=== PATIENT | male | born 1940 | race Caucasian/White ===

== ENCOUNTER 2019-02-05 16:14 | Observation (INO) ==
[2019-02-05] MEDS ORDERED: Ondansetron 4 MG/2 ML VIAL IVP ONE (16:50)
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
[2019-02-05 16:56] LABS: Basophils % 0.3 %; Eosinophils # 0.1 K/mcL (0.0-0.6); Eosinophils % 1.5 %; Hematocrit 51.4 % (37.5-50.1); Hemoglobin 17.2 g/dL (12.9-16.9); Immature Granulocytes % 0.4 % (0-4); Lymphocytes # 1.4 K/mcL (0.6-4.6); Lymphocytes % 21.2 %; Mean Corpuscular HGB Conc 33.5 g/dL (31.6-35.5); Mean Corpuscular Hemoglobin 33.9 pg (28.0-33.3); Mean Corpuscular Volume 101.4 fL (83.0-100.0); Mean Platelet Volume 9.5 fL (9.4-12.4); Monocytes # 0.5 K/mcL (0.0-1.3); Monocytes % 6.7 %; Neutrophils # 4.7 K/mcL (1.6-8.9); Platelet Count 170 K/mcL (140-400); Red Blood Count 5.07 M/mcL (4.19-5.50); Red Cell Distribution Width 11.8 % (11.5-14.5); Segmented Neutrophils % 69.9 %; White Blood Count 6.7 K/mcL (4.3-11.1)
[2019-02-05 17:08] LABS: INR 1.1; Prothrombin Time 12.2 Seconds (9.4-12.1)
[2019-02-05 17:11] LABS: Activated Partial Thrombo Time 31.9 Seconds (26.0-36.0)
[2019-02-05 17:17] LABS: BUN/Creatinine Ratio 19 (6-26); Blood Urea Nitrogen 20 mg/dL (8-23); Calcium 9.6 mg/dL (8.6-10.3); Carbon Dioxide 30 mEq/L (23-29); Chloride 102 mEq/L (98-107); Glucose 201 mg/dL (70-105); Osmolality,Calculated 298 (280-300); Potassium 4.2 mEq/L (3.5-5.1); Sodium 140 mEq/L (136-145); eGFR For African Americans > 60 (> 60); eGFR For Non-African Americans > 60 (> 60)
[2019-02-05 17:18] LABS: Troponin I 0.03 ng/mL (< 0.04)
[2019-02-05] MEDS ORDERED: Nitroglycerin 0.4 MG TAB.SUBL SL PRN (19:58)
[2019-02-05] MEDS ORDERED: Ondansetron 4 MG/2 ML VIAL IVP PRN (19:58)
--- NOTE | 2019-02-05 20:02 | Internal Med History&Physical ---
Date of Encounter: 02/05/19 Time of Encounter: 19:51 Internal Medicine - H&P: HPI Chief complaint: Chest pain History of present illness: Mr. Pool is a 78 year old male with a past medical history of coronary artery disease with reported for four-vessel disease status post CABG, valvular disease with history of moderate aortic stenosis, hyperlipidemia, type 2 diabe karen and HARRY who presented to the ED with complaints of chest discomfort which occurred earlier this morning while patient was at the [facility]. While in the waiting room patient suddenly became diaphoretic, nauseous, short of breath associated with heaviness in the chest that was nonradiating, nonpleuritic with no aggravating or alleviating factors. Intensity of discomfort was 10 out of 10. Patient felt sick to her stomach and got up to go to the bathroom with the hope that if he vomited it may relieve the discomfort. He however was unable to vomit. Symptoms do not improve and the patient additionally felt weak. Family recommended coming in for evaluation. Patient reports current presentation slightly different from previous [place] in [place] 2 years ago. Pain was about a 6 out of 10 on arrival. Did not take any sublingual nitroglycerin. Received loading dose of aspirin in route. Patient denies any recent illness but does states that he's been feeling off for the past month in terms of sleeping more often and decreased energy. Patient previously had workup for obstructive sleep apnea with recommendation for CPAP at night. Patient however has not been using it. On arrival vitals were stable. Laboratory and imaging workup were unremarkable. Initial troponin negative. EKG showing sinus rhythm with non-specific ST and T wave changes not suggestive of ischemia. We will admit for chest pain workup in the setting of significant coronary artery disease history. Past Med Surg Social Fam HX - Past Medical History Medical history: diabetes, myocardial infarction, other Additional medical history: BPH Psychiatric history: anxiety, depression - Past Surgical History Surgical History: coronary bypass (CABG) Additional surgical history: TURP - Social History Smoking Status: Never smoker Alcohol use: none Drug use: none - Family History Brother Hx Family Cardiac Disorders: Yes ([place]) Father Living Status: Cause of : [place] Hx Family Cardiac Disorders: Yes ([place]) Internal Medicine - H&P: Meds Aspirin [Lo-Dose Aspirin EC] 81 mg PO DAILY 02/05/19 [History] Clopidogrel [Plavix] 75 mg PO DAILY 02/05/19 [History] Metoprolol [Lopressor] 25 mg PO HS 02/05/19 [History] Rosuvastatin [Crestor] 10 mg PO HS 02/05/19 [History] Isosorbide MONOnitrate (24 HR) [Imdur] 30 mg PO DAILY #30 tab.er.24h 02/06/19 [Rx] Allergy/AdvReac Type Severity Reaction Status Date / Time No Known Allergies Allergy Verified 02/05/19 17:00 All Systems PM: A 10-system review of systems was performed and is negative for pertinent findings except as documented above in the HPI. - Constitutional Constitutional: no chills, no fever(s), no night sweats - EENT Eyes: no change in vision, no discharge, no pain, no photophobia Ears: no ear discharge, no ear pain, no tinnitus Nose, mouth and throat: no dysphagia, no nasal discharge, no neck pain, no sore throat - Cardiovascular Cardiovascular ROS IM: no chest pain, no diaphoresis, no dyspnea, no lightheadedness, no palpitations, no syncope - Respiratory Respiratory: no cough, no dyspnea, no wheezing, no excessive phlegm production - Gastrointestinal Gastrointestinal: no abdominal pain, no diarrhea, no hematemesis, no hematochezia, no melena, no nausea, no vomiting - Musculoskeletal Musculoskeletal ROS IM: no numbness, no tingling - Integumentary Integumentary IM: no rash, no unusual bruising - Neurological Neurological ROS: no confusion, no convulsions, no focal weakness, no numbness, no tingling, no tremor(s) - Hematologic/Lymphatic Hematologic/Lymphatic: no easy bruising - Constitutional Vitals: Temp Pulse Resp BP Pulse Ox 97.6 F 75 20 109/68 96 02/05/19 16:29 02/05/19 18:05 02/05/19 18:05 02/05/19 18:05 02/05/19 18:05 Exam: General: Alert and oriented Skin:Normal color, no rash, no lesions. HEENT:EOM, pupils equal, round and reactive. Cardiovascular:Normal S1 & S2, no rubs, murmurs or gallops. No JVD. Pulse regular. Lungs:Normal breath sounds, no wheezes or crackles. Abdomen:Soft, non-tender, no rigidity. Extremities:No deformity, no edema or tenderness, no joint swelling or clubbing. Neurological:Normal cognition and motor skills. Pulses:Carotid and radial pulses normal +2. Rest of the physical exam is non contributory Internal Med - H&P Results - Labs CBC & Chem 7: 02/06/19 00:53 02/06/19 00:53 Labs: Short CBC 02/05/19 Range/Units 16:25 WBC 6.7 (4.3-11.1) K/mcL Hgb 17.2 H (12.9-16.9) g/dL Hct 51.4 H (37.5-50.1) % Plt Count 170 (140-400) K/mcL Neutrophils # 4.7 (1.6-8.9) K/mcL BMP 02/05/19 16:25 Sodium 140 Potassium 4.2 Chloride 102 Carbon Dioxide 30 H BUN 20 Creatinine 1.05 Glucose 201 H Calcium 9.6 Cardiac Enzymes 02/05/19 Range/Units 16:25 Troponin I 0.03 (< 0.04) ng/mL - Impressions ITS Impressions Chest X-Ray 02/05/19 16:45 IMPRESSION: No acute cardiopulmonary process. D/ / Arun Palma MD / Arun Palam MD Interpreting Provider: Arun Palma MD - Assessment and Plan (1) Chest pain Status: Acute Assessment and plan: Patient is a 78-year-old male with a past medical history of CAD with 4 vessel disease status post CABG and valvular heart disease who presented with significant chest discomfort associated with diaphoresis and nausea. Presentation slightly different to previous [place]. Initial troponin negative. EKG shows sinus rhythm no significant ST or T-wave changes concerning for ischemia. Laboratory and imaging workup otherwise unremarkable. Patient currently on low-dose aspirin, rosuvastatin, beta julio and Plavix and reports compliance with medications. Currently chest down to 2 out of 10. Received loading dose of aspirin in route Cannot rule out ACS at this time. Most recent echo on record from September 2017 showing EF of 45-50% with moderately calcified aortic valve leaflets and mild aortic stenosis. -Telemetry -Trend troponin -Echocardiogram -Sublingual nitroglycerin as needed -Continue beta julio, aspirin, statin and Plavix -Stress testing if troponins remain negative -We will consider cardiology consult if any concerning changes manifest overnight. Qualifiers: Chest pain type: unspecified Qualified Code(s): R07.9 - Chest pain, unspecified (2) HARRY (obstructive sleep apnea) Status: Acute Assessment and plan: History of HARRY with recommendation for CPAP at night. Patient however has not been compliant. -Recommended CPAP tonight (3) Hypertension Status: Acute Assessment and plan: Blood pressure stable. -Resume home antihypertensives Qualifiers: Hypertension type: essential hypertension Qualified Code(s): I10 - Essential (primary) hypertension (4) Hyperlipidemia Status: Acute Assessment and plan: Continue home dose rosuvastatin Qualifiers: Hyperlipidemia type: unspecified Qualified Code(s): E78.5 - Hyperlipidemia, unspecified (5) DVT prophylaxis Status: Acute Assessment and plan: Subcutaneous heparin - Time Spent With Patient Total time spent is greater than 50% in coordination of care (as documented) at patient's floor/unit and/or counseling patient:
[2019-02-05] MEDS: *HR* Heparin 5,000 UNIT/ML VIAL SQ SCH (21:52)
[2019-02-06 02:05] LABS: Basophils % 0.3 %; Eosinophils # 0.1 K/mcL (0.0-0.6); Eosinophils % 1.4 %; Hematocrit 45.5 % (37.5-50.1); Immature Granulocytes % 0.3 % (0-4); Lymphocytes # 1.6 K/mcL (0.6-4.6); Lymphocytes % 24.5 %; Mean Corpuscular HGB Conc 33.4 g/dL (31.6-35.5); Mean Corpuscular Hemoglobin 33.4 pg (28.0-33.3); Mean Platelet Volume 10.1 fL (9.4-12.4); Monocytes # 0.5 K/mcL (0.0-1.3); Monocytes % 7.3 %; Neutrophils # 4.3 K/mcL (1.6-8.9); Platelet Count 162 K/mcL (140-400); Red Blood Count 4.55 M/mcL (4.19-5.50); Red Cell Distribution Width 11.6 % (11.5-14.5); Segmented Neutrophils % 66.2 %; White Blood Count 6.5 K/mcL (4.3-11.1)
[2019-02-06 02:06] LABS: Hemoglobin 15.2 g/dL (12.9-16.9)
[2019-02-06 02:12] LABS: INR 1.1; Prothrombin Time 12.7 Seconds (9.4-12.1)
[2019-02-06 02:15] LABS: Activated Partial Thrombo Time 31.4 Seconds (26.0-36.0)
[2019-02-06 02:56] LABS: Alanine Aminotransferase 233 Units/L (7-52); Albumin 3.8 g/dL (3.5-5.7); Albumin/Globulin Ratio 1.8 (1.1-2.2); Alkaline Phosphatase 88 Units/L (34-104); Aspartate Amino Transferase 405 Units/L (13-39); BUN/Creatinine Ratio 22 (6-26); Bilirubin,Total 1.3 mg/dL (0.3-1.0); Blood Urea Nitrogen 23 mg/dL (8-23); Carbon Dioxide 23 mEq/L (23-29); Chloride 102 mEq/L (98-107); Chol/HDL Ratio 3.9 (0-4.9); Cholesterol 109 mg/dL (< 200); Globulin 2.1 g/dL (2.4-3.5); Glucose 276 mg/dL (70-105); HDL Cholesterol 28 mg/dL (40-59); LDL Cholesterol,Calculated 57 mg/dL (0-99); Osmolality,Calculated 300 (280-300); Potassium 3.8 mEq/L (3.5-5.1); Sodium 138 mEq/L (136-145); Total Protein 5.9 g/dL (6.4-8.9); Triglycerides 118 mg/dL (< 150); eGFR For African Americans > 60 (> 60); eGFR For Non-African Americans > 60 (> 60)
[2019-02-06] MEDS: *HR* Heparin 5,000 UNIT/ML VIAL SQ SCH ×2 (05:44→14:49)
[2019-02-06] MEDS ORDERED: Regadenoson 0.4 MG/5 ML SYRINGE IVP ONE (06:18)
[2019-02-06] MEDS ORDERED: Aspirin Enteric Coated 81 MG Tablet PO SCH (09:00)
[2019-02-06 09:09] LABS: Estimated Average Glucose 148 mg/dl
[2019-02-06 11:43] VITALS: BP 106/67
--- NOTE | 2019-02-06 12:36 | Electrocardiograph Report ---
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
[2019-02-06] MEDS ORDERED: Isosorbide MONOnitrate (24 HR) 30 MG TAB.ER.24H PO SCH (13:34)
--- NOTE | 2019-02-06 14:51 | Discharge Summary ---
- NOTES TO OUTPATIENT PROVIDER Notes to Outpatient Provider: f/u with PCP in one week. f/u with Cardiology in 1-2 weeks. Medication changes: Start taking Imdur 30 mg PO Daily. Date of Encounter: 02/06/19 Time of Encounter: 14:49 - Discharge Diagnosis (1) Chest pain Priority: Primary Status: Acute Qualifiers: Chest pain type: unspecified Qualified Code(s): R07.9 - Chest pain, unspecified (2) HARRY (obstructive sleep apnea) Priority: Secondary Status: Acute (3) Hypertension Priority: Secondary Status: Acute Qualifiers: Hypertension type: essential hypertension Qualified Code(s): I10 - Essential (primary) hypertension (4) Hyperlipidemia Priority: Secondary Status: Acute Qualifiers: Hyperlipidemia type: unspecified Qualified Code(s): E78.5 - Hyperlipidemia, unspecified (5) DVT prophylaxis Priority: Secondary Status: Acute Hospital course: Mr. Pool is a 78 year old male with a past medical history of coronary artery disease with reported for four-vessel disease status post CABG, valvular disease with history of moderate aortic stenosis, hyperlipidemia, type 2 diabetes and HARRY who presented to the ED with complaints of chest discomfort which occurred earlier in the day while patient was at the [facility]. While in the waiting room patient suddenly became diaphoretic, nauseous, short of breath associated with heaviness in the chest that was non radiating, non pleuritic with no aggravating or alleviating factors. Intensity of discomfort was 10 out of 10. He was admitted in the hospital and placed him on telemetry monitor. His serial troponin were negative. His EKG did not show any acute ischemic changes. He denied any more CP. Since he is high risk for ACS, he did go for nuclear stress test which came back as negative. Due to his extensive cardiac history he was evaluated by testing specialist who recommend to start him on imdur and recommend to f/u with them as an out pt. His 2-D Echo showed preserved LVEF, septal/almost abnormalities noticed. Reviewed his Echo with testing specialist he does have moderate active stenosis, recommend to f/u with Card as an out pt. - Time Spent with Patient Total time spent providing and/or coordinating discharge services: - Discharge Medications Prescriptions: New Isosorbide MONOnitrate (24 HR) [Imdur] 30 mg PO DAILY #30 tab.er.24h Continued Clopidogrel [Plavix] 75 mg PO DAILY Rosuvastatin [Crestor] 10 mg PO HS Aspirin [Lo-Dose Aspirin EC] 81 mg PO DAILY Metoprolol [Lopressor] 25 mg PO HS Home Medications: Aspirin [Lo-Dose Aspirin EC] 81 mg PO DAILY 02/05/19 [History] Clopidogrel [Plavix] 75 mg PO DAILY 02/05/19 [History] Metoprolol [Lopressor] 25 mg PO HS 02/05/19 [History] Rosuvastatin [Crestor] 10 mg PO HS 02/05/19 [History] Isosorbide MONOnitrate (24 HR) [Imdur] 30 mg PO DAILY #30 tab.er.24h 02/06/19 [Rx] Allergies/Adverse Reactions: Allergy/AdvReac Type Severity Reaction Status Date / Time No Known Allergies Allergy Verified 02/05/19 17:00 Date of admission: 02/05/19 18:32 Primary care physician: Nicolette Ornelas Consults: 02/06/19 11:25 Consult to Cardiology [CONS] Routine Comment: Consulting Provider: [facility] [place] Reason for Consult: Chest pain.. Extensive cardiac history Time Notified: 11:25 Call Completed: Yes - Constitutional Vitals: Temp Pulse Resp BP Pulse Ox 97.5 F L 63 17 106/67 94 02/06/19 11:41 02/06/19 11:41 02/06/19 11:41 02/06/19 11:41 02/06/19 03:32 General appearance: Present: cooperative, A&O X 3, no acute distress, answers questions appropriately Exam: Gen: Alert, awake, Oriented to time,place and person Chest: Diminished breath sounds B/L, No wheezing, No crackles, No rales Heart: S1S2+ RRR No murmurs Abd: Soft, NT, BS +, No organomegaly Ext: No edema, pulses are palpable, No calf tenderness Neuro : No acute focal neuro deficits noticed Skin: No rash. - Patient Status Disposition: Home, Self-Care Condition: Good Overall status at discharge: patient is back to baseline - Discharge Instructions Follow Up With: Nicolette Ornelas MD [Primary Care Provider] - (Appointment has been requested) Yovana Beard MD [Partnered Physician] - - Diet and Activity Activity: increase activity as tolerated Diet: low salt diet
== END 2019-02-06 16:40 | disposition home or self-care (01) ==
LOC: EMEROOARM 16:14 → 3BNU 16:14 → SUATTDRO 18:32 → 3BNU 20:01
PROVIDERS: ADMIT Pharmacist; ATTEND Family Medicine

== ENCOUNTER 2021-11-14 03:53 | Inpatient (IN) ==
[2021-11-14 04:25] LABS: Basophils % 0.3 %; Eosinophils # 0.2 K/mcL (0.0-0.6); Eosinophils % 1.7 %; Hemoglobin 14.5 g/dL (12.9-16.9); Immature Granulocytes % 0.4 % (0-4); Lymphocytes # 4.3 K/mcL (0.6-4.6); Lymphocytes % 44.3 %; Mean Corpuscular HGB Conc 33.7 g/dL (31.6-35.5); Mean Corpuscular Hemoglobin 33.9 pg (28.0-33.3); Mean Corpuscular Volume 100.5 fL (83.0-100.0); Mean Platelet Volume 9.1 fL (9.4-12.4); Monocytes # 0.8 K/mcL (0.0-1.3); Monocytes % 8.6 %; Neutrophils # 4.3 K/mcL (1.6-8.9); Platelet Count 196 K/mcL (140-400); Red Blood Count 4.28 M/mcL (4.19-5.50); Red Cell Distribution Width 11.6 % (11.5-14.5); Segmented Neutrophils % 44.7 %; White Blood Count 9.7 K/mcL (4.3-11.1)
[2021-11-14] MEDS ORDERED: Iopamidol - 370 500 ML MLS IVP ONE (04:25)
[2021-11-14 04:27] LABS: INR 1.1; Prothrombin Time 11.9 Seconds (9.4-12.1)
[2021-11-14] MEDS ORDERED: Morphine Sulfate 2 MG/ML SYRINGE IVP ONE (04:29)
[2021-11-14 04:54] LABS: BUN/Creatinine Ratio 22 (6-26); Blood Urea Nitrogen 24 mg/dL (8-23); Carbon Dioxide 26 mEq/L (23-29); Chloride 103 mEq/L (98-107); Glucose 236 mg/dL (70-105); Lipase 14 Units/L (11-82); Osmolality,Calculated 302 (280-300); Potassium 3.3 mEq/L (3.5-5.1); Sodium 140 mEq/L (136-145); Troponin I < 0.03 ng/mL (< 0.04); eGFR For African Americans > 60 (> 60); eGFR For Non-African Americans > 60 (> 60)
[2021-11-14] MEDS ORDERED: diazePAM 10 MG/2 ML SYRINGE IVP ONE (05:00)
[2021-11-14] MEDS ORDERED: Aspirin 325 MG TABLET PO ONE (06:36)
[2021-11-14] MEDS ORDERED: Naloxone 0.4 MG/ML INJ IVP PRN (07:56)
[2021-11-14] MEDS ORDERED: Ondansetron 4 MG/2 ML VIAL IVP PRN (07:56)
[2021-11-14] MEDS ORDERED: Perflutren Lipid Microsphere 1.3 ML in 0.9 % Sodium Chloride 8.7 ML IVP PRN ×2 (08:02→11:41)
[2021-11-14] MEDS ORDERED: *HR* Heparin 5,000 UNIT/ML VIAL IVP ONE (08:03)
[2021-11-14] MEDS ORDERED: Nitroglycerin 0.4 MG TAB.SUBL SL PRN (08:03)
[2021-11-14] MEDS ORDERED: *HR* Heparin 5,000 UNIT/ML VIAL IVP PRN ×2 (08:03)
[2021-11-14] MEDS ORDERED: Dextrose Gel 15 GM/37.5 ML TUBE PO PRN ×2 (08:07)
[2021-11-14] MEDS ORDERED: D5% in Water 1,000 ML IVC PRN (08:07)
[2021-11-14] MEDS ORDERED: *HR* Dextrose 50 % in Water (Syg) 50 ML SYRINGE IVP PRN (08:07)
[2021-11-14] MEDS: Aspirin Enteric Coated 81 MG Tablet PO SCH (09:42)
[2021-11-14] MEDS: Heparin 25,000UNIT/250ML 1/2NS 25,000 UNIT/250 ML IV.SOLN IVC SCH (09:42)
[2021-11-14] MEDS: Metoprolol XL (24 HR) Succ 25 MG TAB.ER.24H PO SCH (09:42)
[2021-11-14] MEDS ORDERED: 0.45 % Sodium Chloride w/KCl 20 MEQ/1,000 ML MLS IVC SCH (09:45)
[2021-11-14 09:53] LABS: Hematocrit 43.2 % (37.5-50.1); Hemoglobin 14.6 g/dL (12.9-16.9); Mean Corpuscular HGB Conc 33.8 g/dL (31.6-35.5); Mean Corpuscular Hemoglobin 34.1 pg (28.0-33.3); Mean Corpuscular Volume 100.9 fL (83.0-100.0); Mean Platelet Volume 9.4 fL (9.4-12.4); Platelet Count 152 K/mcL (140-400); Red Blood Count 4.28 M/mcL (4.19-5.50); Red Cell Distribution Width 11.6 % (11.5-14.5); White Blood Count 7.1 K/mcL (4.3-11.1)
[2021-11-14 10:01] LABS: Heparin anti-factor XA UFH < 0.04 IU/mL (0.30-0.70)
[2021-11-14 10:02] LABS: INR 1.1; Prothrombin Time 12.7 Seconds (9.4-12.1)
[2021-11-14 10:37] LABS: Bilirubin,Urine Negative (Negative); Blood,Urine Negative (Negative); Clarity,Urine Clear (Clear); Color,Urine Yellow (Yellow); Glucose,Urine (UA) Normal (Normal); Ketones,Urine Negative (Negative); Leukocyte Esterase,Urine Negative (Negative); Nitrite,Urine Negative (Negative); Protein,Urine Trace mg/dL (Neg-Trace); Specific Gravity,Urine > 1.030 (1.010-1.025); Urobilinogen,Urine Normal (Normal)
[2021-11-14 11:25] LABS: Amphetamine Screen,Urine Negative ng/mL (Cutoff=1000); Barbiturate Screen,Urine Negative ng/mL (Cutoff=200); Benzodiazepines Screen,Urine Negative ng/mL (Cutoff=200); Cannabinoid Screen,Urine Negative ng/mL (Cutoff = 50); Cocaine Screen,Urine Negative ng/mL (Cutoff= 300); Opiate Screen,Urine Positive ng/mL (Cutoff=300); Phencyclidine Screen,Urine Negative ng/mL (Cutoff=25)
[2021-11-14 11:41] LABS: Estimated Average Glucose 143 mg/dl; Hemoglobin A1C 6.6 %
[2021-11-14] MEDS: 0.45 % Sodium Chloride w/KCl 20 MEQ/1,000 ML MLS IVC SCH ×3 (12:03→23:20)
[2021-11-14] MEDS: Acetaminophen 325 MG TABLET PO PRN (12:16)
[2021-11-14] MEDS: Insulin LISPRO 300 UNITS/3 ML VIAL SUBQ SCH ×2 (14:19→18:23)
[2021-11-15] MEDS: Insulin LISPRO 300 UNITS/3 ML VIAL SUBQ SCH ×4 (00:26→17:16)
[2021-11-15 01:54] LABS: Basophils % 0.5 %; Eosinophils # 0.2 K/mcL (0.0-0.6); Eosinophils % 3.6 %; Hematocrit 39.1 % (37.5-50.1); Immature Granulocytes % 0.3 % (0-4); Lymphocytes # 2.1 K/mcL (0.6-4.6); Lymphocytes % 36.8 %; Mean Corpuscular Hemoglobin 33.9 pg (28.0-33.3); Mean Corpuscular Volume 102.9 fL (83.0-100.0); Mean Platelet Volume 9.6 fL (9.4-12.4); Monocytes # 0.5 K/mcL (0.0-1.3); Monocytes % 7.9 %; Neutrophils # 2.9 K/mcL (1.6-8.9); Platelet Count 142 K/mcL (140-400); Red Cell Distribution Width 11.7 % (11.5-14.5); Segmented Neutrophils % 50.9 %; White Blood Count 5.8 K/mcL (4.3-11.1)
[2021-11-15 01:57] LABS: Hemoglobin 12.9 g/dL (12.9-16.9)
[2021-11-15 02:19] LABS: Alanine Aminotransferase 160 Units/L (7-52); Albumin 3.4 g/dL (3.5-5.7); Albumin/Globulin Ratio 1.4 (1.1-2.2); Alkaline Phosphatase 70 Units/L (34-104); Aspartate Amino Transferase 113 Units/L (13-39); BUN/Creatinine Ratio 17 (6-26); Bilirubin,Total 0.5 mg/dL (0.3-1.0); Blood Urea Nitrogen 19 mg/dL (8-23); Calcium 8.5 mg/dL (8.6-10.3); Carbon Dioxide 24 mEq/L (23-29); Chloride 104 mEq/L (98-107); Chol/HDL Ratio 3.2 (0-4.9); Cholesterol 98 mg/dL (< 200); Globulin 2.5 g/dL (2.4-3.5); Glucose 130 mg/dL (70-105); HDL Cholesterol 31 mg/dL (40-59); LDL Cholesterol,Calculated 48 mg/dL (< 100); Osmolality,Calculated 288 (280-300); Sodium 137 mEq/L (136-145); Total Protein 5.9 g/dL (6.4-8.9); Triglycerides 97 mg/dL (< 150); eGFR For African Americans > 60 (> 60); eGFR For Non-African Americans > 60 (> 60)
[2021-11-15] MEDS: Metoprolol XL (24 HR) Succ 25 MG TAB.ER.24H PO SCH (08:10)
[2021-11-15] MEDS: Aspirin Enteric Coated 81 MG Tablet PO SCH (08:10)
[2021-11-15] MEDS: Heparin 25,000UNIT/250ML 1/2NS 25,000 UNIT/250 ML IV.SOLN IVC SCH (08:30)
[2021-11-15] MEDS: 0.45 % Sodium Chloride w/KCl 20 MEQ/1,000 ML MLS IVC SCH (13:05)
[2021-11-15] MEDS ORDERED: *HR* Midazolam HCl 2 MG/2 ML VIAL ONE ×2 (14:26→15:32)
[2021-11-15] MEDS ORDERED: *HR* FentaNYL (PF) 100 MCG/2 ML VIAL ONE ×2 (14:26→15:32)
[2021-11-15] MEDS ORDERED: *HR* Ticagrelor 90 MG TABLET ONE (16:06)
[2021-11-15] MEDS: 0.9 % Sodium Chloride 500 ML IVC SCH (17:58)
[2021-11-15] MEDS: Acetaminophen 325 MG TABLET PO PRN (20:56)
[2021-11-16 03:43] VITALS: BP 110/69; PULSE 65; TEMP 97.6; O2SAT 95
[2021-11-16] MEDS: 0.9 % Sodium Chloride 500 ML IVC SCH ×3 (04:45→09:05)
[2021-11-16 05:02] LABS: Hematocrit 38.5 % (37.5-50.1); Hemoglobin 12.7 g/dL (12.9-16.9)
[2021-11-16 05:29] LABS: BUN/Creatinine Ratio 20 (6-26); Blood Urea Nitrogen 19 mg/dL (8-23); Calcium 7.9 mg/dL (8.6-10.3); Carbon Dioxide 26 mEq/L (23-29); Chloride 105 mEq/L (98-107); Glucose 107 mg/dL (70-105); Magnesium 1.7 mg/dL (1.6-2.6); Osmolality,Calculated 289 (280-300); Potassium 3.9 mEq/L (3.5-5.1); Sodium 138 mEq/L (136-145); eGFR For African Americans > 60 (> 60); eGFR For Non-African Americans > 60 (> 60)
[2021-11-16] MEDS: Insulin LISPRO 300 UNITS/3 ML VIAL SUBQ SCH ×2 (05:37→07:34)
[2021-11-16 05:40] LABS: Folate 18.2 ng/mL (3.0-16.0)
[2021-11-16] MEDS: Aspirin Enteric Coated 81 MG Tablet PO SCH (09:36)
[2021-11-16] MEDS: Metoprolol XL (24 HR) Succ 25 MG TAB.ER.24H PO SCH (09:36)
== END 2021-11-16 11:14 | disposition home or self-care (01) | DRG 287 ==
LOC: 3BNU 03:53 → EMEROOARM 03:53 → SUATTDRO 07:41 → 3BNU 08:21
PROVIDERS: ADMIT General Practice; ATTEND Internal Medicine